=== PATIENT | female | born 1970 | race Caucasian/White ===

== ENCOUNTER 2024-06-12 12:22 | Emergency (ER) | payer BC ==
[~2024-06-12] VITALS: Ht 162.6 cm; Wt 79.4 kg
[2024-06-12 12:53] LABS: BASOPHILS # (AUTO) 0.1 K/UL (0.0-0.2); BASOPHILS % (AUTO) 0.6 % (0.0-2.0); EOSINOPHILS # (AUTO) 0.1 K/uL (0.0-0.7); EOSINOPHILS % (AUTO) 0.8 % (0.0-7.0); HEMATOCRIT 45.3 % (31.2-41.9); HEMOGLOBIN 15.6 g/dL (10.9-14.3); LYMPHOCYTES # (AUTO) 1.6 K/uL (0.8-4.8); LYMPHOCYTES % (AUTO) 17.2 % (20.5-51.5); MEAN CORPUSCULAR HEMOGLOBIN 29.6 uug (24.7-32.8); MEAN CORPUSCULAR HGB CONC 34 g/dL (32.3-35.6); MEAN CORPUSCULAR VOLUME 86.3 fL (75.5-95.3); MONOCYTES # (AUTO) 0.7 K/uL (0.1-1.30); MONOCYTES % (AUTO) 7.6 % (0.0-11.0); NEUTROPHILS % (AUTO) 73.8 % (38.5-71.5); PLATELET COUNT (AUTO) 281 K/uL (179-408); RED BLOOD CELL COUNT(AUTO) 5.25 MIL/uL (3.63-4.92); RED CELL DISTRIBUTION WIDTH 13.2 % (12.3-17.7); WHITE BLOOD COUNT (AUTO) 9.5 K/uL (3.8-11.8)
[2024-06-12] MEDS: IV NORMAL SALINE 1000 ML BAG IV ONE (12:55)
[2024-06-12] MEDS ORDERED: ADENOSINE 6 MG/2 ML SYR IV ONE ×2 (12:56→12:59)
[2024-06-12] MEDS: ADENOSINE 6 MG/2 ML SYR IV ONE ×2 (13:00→13:04)
[2024-06-12 13:02] LABS: DIFFERENTIAL COMMENT 1
[2024-06-12 13:18] LABS: ALANINE AMINOTRANSFERASE 13 U/L (14-59); ALBUMIN 4.2 g/dL (3.4-5.0); ALKALINE PHOSPHATASE 66 U/L (50-136); ASPARTATE AMINOTRANSFERASE 13 U/L (15-37); BILIRUBIN,DIRECT 0.3 mg/dL (0.0-0.2); BILIRUBIN,TOTAL 1.5 mg/dL (0.2-1.0); CALCIUM 9.9 mg/dL (8.5-10.1); CARBON DIOXIDE 26 mmol/L (21-32); CHLORIDE 101 mmol/L (98-107); CREATININE 0.8 mg/dL (0.6-1.3); GLUCOSE 112 mg/dL (74-106); NT-PRO BNP 59 pg/mL (0-125); SODIUM SERUM 139 mmol/L (136-145); TOTAL PROTEIN, SERUM 8.9 g/dL (6.4-8.2); UREA NITROGEN, BLOOD 15 mg/dL (7-18)
[2024-06-12 13:20] LABS: THYROID STIMULATING HORMONE 1.292 mIU/mL (0.358-3.740)
[2024-06-12 13:23] LABS: MAGNESIUM 2.3 mg/dL (1.8-2.4)
[2024-06-12] MEDS: IV LACTATED RINGERS SOLUTION 1,000 ML BAG IV ONE (13:49)
[2024-06-12 15:13] VITALS: BP 144/93; O2SAT 99
== END 2024-06-12 15:16 | disposition home or self-care (01) ==
LOC: ER 12:22
DX: I47.19 Other supraventricular tachycardia (principal); R07.9 Chest pain, unspecified; I10 Essential (primary) hypertension; Z85.3 Personal history of malignant neoplasm of breast
CPT/HCPCS: 99291; 96374; 96361; 80076; 80048; 83880; 83735; 84443; 85025; 85730; 84484; 36415; 71045; 93005; J0153; J7040; A4606; A4663

== ENCOUNTER 2024-08-22 08:23 | Emergency (ER) | payer BC ==
[~2024-08-22] VITALS: Ht 165.1 cm; Wt 68.0 kg
[2024-08-22] MEDS ORDERED: ALPRAZOLAM 0.25 MG TABLET ONE (08:57)
[2024-08-22] MEDS: ALPRAZOLAM 0.25 MG TABLET PO ONE (09:00)
[2024-08-22 09:04] LABS: BASOPHILS % (AUTO) 0.6 % (0.0-2.0); EOSINOPHILS # (AUTO) 0.1 K/uL (0.0-0.7); EOSINOPHILS % (AUTO) 1.3 % (0.0-7.0); HEMATOCRIT 44.6 % (31.2-41.9); LYMPHOCYTES # (AUTO) 1.3 K/uL (0.8-4.8); LYMPHOCYTES % (AUTO) 19.3 % (20.5-51.5); MEAN CORPUSCULAR HEMOGLOBIN 30.9 uug (24.7-32.8); MEAN CORPUSCULAR HGB CONC 36 g/dL (32.3-35.6); MEAN CORPUSCULAR VOLUME 86.1 fL (75.5-95.3); MONOCYTES # (AUTO) 0.4 K/uL (0.1-1.30); MONOCYTES % (AUTO) 6.5 % (0.0-11.0); NEUTROPHILS # (AUTO) 4.8 K/uL (1.8-8.9); NEUTROPHILS % (AUTO) 72.3 % (38.5-71.5); PLATELET COUNT (AUTO) 246 K/uL (179-408); RED BLOOD CELL COUNT(AUTO) 5.18 MIL/uL (3.63-4.92); RED CELL DISTRIBUTION WIDTH 13.2 % (12.3-17.7); WHITE BLOOD COUNT (AUTO) 6.7 K/uL (3.8-11.8)
[2024-08-22 09:07] LABS: DIFFERENTIAL COMMENT 1
[2024-08-22 09:22] LABS: CALCIUM 9.5 mg/dL (8.5-10.1); CARBON DIOXIDE 24 mmol/L (21-32); CHLORIDE 103 mmol/L (98-107); CREATININE 0.6 mg/dL (0.6-1.3); GLUCOSE 99 mg/dL (74-106); POTASSIUM 4.8 mmol/L (3.5-5.1); SODIUM SERUM 139 mmol/L (136-145); UREA NITROGEN, BLOOD 13 mg/dL (7-18)
[2024-08-22 09:35] LABS: NT-PRO BNP 128 pg/mL (0-125)
[2024-08-22] MEDS ORDERED: NEBI2.5T5 PO (10:03)
[2024-08-22 10:08] VITALS: BP 130/91; O2SAT 97
== END 2024-08-22 10:08 | disposition home or self-care (01) ==
LOC: ER 08:23
DX: R00.2 Palpitations (principal); R00.0 Tachycardia, unspecified; R03.0 Elevated blood-pressure reading, without diagnosis of hypertension; R06.02 Shortness of breath; R07.9 Chest pain, unspecified; I11.9 Hypertensive heart disease without heart failure; I48.91 Unspecified atrial fibrillation; F41.9 Anxiety disorder, unspecified; Z85.3 Personal history of malignant neoplasm of breast
CPT/HCPCS: 36415; 71045; 83735; 84484; 85025; 85730; A4606; A4663